=== PATIENT | female | born 1975 | race Caucasian/White ===

== ENCOUNTER 2025-02-10 17:02 | Emergency (ER) | payer MEDICAID ==
[~2025-02-10] VITALS: Ht 165.1 cm; Wt 77.0 kg
[2025-02-10 17:05] VITALS: O2SAT 95
[2025-02-10 19:50] LABS: BASOPHILS % 0.7 % (0.0-2.0); EOSINOPHILS % 0.8 % (0.0-5.0); HEMATOCRIT. 41.3 % (36.0-48.0); HEMOGLOBIN. 13.2 g/dL (12.0-16.0); LYMPHOCYTES % 26.6 % (20.0-50.0); MEAN PLATELET VOLUME 8.5 fl (7.4-10.4); MONOCYTES % 6.5 % (2.0-8.0); NEUTROPHILS % 65.4 % (40.0-76.0); PLATELET 305 x1000/uL (130-400); RED BLOOD CELL COUNT 4.83 mill/uL (4.2-5.4); RED CELL DISTRIBUTION WIDTH 15.6 % (11.6-14.6)
[2025-02-10 20:03] LABS: CREATININE 0.6 mg/dL (0.6-1.0)
[2025-02-10 20:04] LABS: UREA NITROGEN BLOOD 18 mg/dL (9-23)
[2025-02-10 20:05] LABS: ASPARTATE AMINOTRANSFERASE 23 IU/L (<34); TROPONIN I HIGH SENSITIVITY 8 ng/L (3.0-34)
[2025-02-10 20:06] LABS: BILIRUBIN DIRECT < 0.1 mg/dL (<=3.0); BILIRUBIN TOTAL 0.3 mg/dL (0.1-1.0); PROTEIN TOTAL 7.1 g/dL (6.0-8.3)
[2025-02-10 20:37] VITALS: TEMP 36.8
[2025-02-10] MEDS: KETOROLAC 15MG/ML VIAL IV ONE (21:12)
[2025-02-10] MEDS: ACETAMINOPHEN 325MG TABLET PO ONE (21:12)
[2025-02-10] MEDS: LIDOCAINE 5% PATCH TOP SCH (21:13)
[2025-02-10 21:16] VITALS: BP 146/62; PULSE 75; RESP 15; O2SAT 98
[2025-02-10 21:35] LABS: TROPONIN I HIGH SENSITIVITY 8 ng/L (3.0-34)
[2025-02-10] MEDS ORDERED: IOHEXOL-350 100 ML BOTTLE ONE (23:17)
[2025-02-10] MEDS ORDERED: IOHEXOL-350 50 ML BOTTLE ONE (23:18)
== END 2025-02-10 21:34 | disposition home or self-care (01) ==
LOC: ER 17:02 → EDBEDREQ 17:32 → ER 21:34 → CMPBEDREQ 02-11 07:36
DX: R10.12 Left upper quadrant pain (principal); E11.9 Type 2 diabetes mellitus without complications; R42 Dizziness and giddiness
CPT/HCPCS: 99285; 71275; 86870; 74174; 96374; 71045; 80076; 80048; 83690; 85025; 86850; 86900; 86901; 84484; 36415; 73110; 73130; 70450; 72125; 93005; J1885; Q9967